=== PATIENT | male | born 1965 | race African-American/Black ===

== ENCOUNTER 2021-07-31 13:24 | Emergency (ER) | payer BC ==
[~2021-07-31] VITALS: Ht 177.8 cm; Wt 122.7 kg
== END 2021-07-31 13:47 | disposition home or self-care (01) ==
LOC: FSED 13:47
DX: R05.9 Cough, unspecified (principal); J20.9 Acute bronchitis, unspecified; I10 Essential (primary) hypertension
CPT/HCPCS: 99282